=== PATIENT | male | born 1990 | race Hispanic/Latino ===

== ENCOUNTER 2021-07-14 12:34 | Emergency (ER) | payer SELFPAY ==
[~2021-07-14 12:34] MED LIST: Iopamidol 370 76% 100 ML VIAL ONE
[2021-07-14 13:23] LABS: #Basophils 0.1 thou/uL (0.0-0.2); #Lymphocytes 1.1 thou/uL (1.20-3.40); #Monocytes 1.8 thou/uL (0.11-0.59); #Neutrophils 14.4 thou/uL (1.40-6.50); %Basophils 0.8 % (0.0-1.0); %Eosinophils 0.2 % (0.0-10.0); %Lymphocytes 6.4 % (21.0-51.0); %Monocytes 10.3 % (0.0-10.0); %Neutrophils 82.3 % (42.0-75.0); Hemoglobin 16.1 g/dL (14.0-18.0); Mean Corpuscular HGB CONC 32.9 g/dL (32.0-36.0); Mean Corpuscular Hemoglobin 31.4 pg (27.0-31.0); Mean Corpuscular Volume 95.4 fL (78.0-98.0); Mean Platelet Volume 9.3 fL (7.4-10.4); Platelet Count 269 thou/uL (130-400); RBC Distribution Width 11.2 % (11.5-14.5); Red Blood Cell (RBC) Count 5.14 mill/uL (4.70-6.10); White Blood Cell (WBC) Count 17.5 thou/uL (4.8-10.8)
[2021-07-14] MEDS ORDERED: Ondansetron PF 4 MG/2 ML Vial ONE (13:23)
[2021-07-14] MEDS ORDERED: Morphine 4 MG/ML VIAL ONE (13:23)
[2021-07-14] MEDS ORDERED: Sodium Chloride 0.9% 1,000 ML ONE ×2 (13:23→15:08)
[2021-07-14 13:27] LABS: Bilirubin Large (Negative); Blood, Urine Trace (Negative); Glucose, Urine (Dipstick) 100 mg/dL (Negative); Ketone, Urine 80 mg/dL (Negative); Leukocyte Negative (Negative); Nitrite Negative (Negative); Protein, Urine (Dipstick) > or equal to 300 mg/dL (Neg-Trace); Urobilinogen > or = 8.0 mg/dL (Less than 2)
[2021-07-14 13:39] LABS: Specific Gravity, Urine 1.032 (1.002-1.036)
[2021-07-14 13:40] LABS: Clarity SL HAZY (Clear)
[2021-07-14 13:41] LABS: ALT (SGPT) 110 U/L (8-55); AST (SGOT) 53 U/L (5-34); Albumin 4.5 g/dL (3.5-5.0); Alkaline Phosphatase 135 U/L (40-110); Anion Gap 19 mmol/L (10-20); BUN (Urea Nitrogen) 10 mg/dL (8.9-20.6); Bilirubin, Total 4.3 mg/dL (0.2-1.2); Calc. Creatinine Clearance 0 mL/min (70-130); Calcium 10.5 mg/dL (7.8-10.44); Carbon Dioxide 26 mmol/L (22-29); Chloride 93 mmol/L (98-107); Globulin 4.6 g/dL (2.4-3.5); Glucose 123 mg/dL (70-105); Lipase 13 U/L (8-78); Potassium 3.9 mmol/L (3.5-5.1); Protein, Total 9.1 g/dL (6.0-8.3); Sodium 134 mmol/L (136-145)
[2021-07-14 13:41] LABS: Mucous/LPF 2+ LPF (<2+); RBC/HPF 0-3 HPF (0-3); Squamous Epithelial 0-3 HPF (0-3); WBC/HPF 0-3 HPF (0-3)
[2021-07-14] MEDS ORDERED: Piperacillin/Tazobactam 3.375 GM VIAL ONE (14:39)
[2021-07-14] MEDS ORDERED: Sodium Chloride 0.9% 100 ML ONE (14:40)
[2021-07-14 15:48] LABS: SARS-CoV-2 NAA Rapid Test Not Detected (NotDetected)
== END 2021-07-14 15:38 | disposition short-term general hospital (02) ==
LOC: NAV ERS 12:34
DX: K35.80 Unspecified acute appendicitis (principal); Z20.822 Contact with and (suspected) exposure to COVID-19
CPT/HCPCS: 74177; 80053; 81003; 81015; 83605; 83690; 85025; 87040; 96365; 96375; J2270; J2405; J2543; J3490; J7050; Q9967; U0002